=== PATIENT | male | born 1975 | race African-American/Black ===

== ENCOUNTER 2016-06-02 16:02 | Emergency (ER) | payer OTHER ==
[~2016-06-02] VITALS: Ht 175.3 cm; Wt 83.0 kg
[~2016-06-02 16:02] MED LIST: Aspirin E.C. PO; BENTYL20 MG PO; CARAFATE1 GM PO; HYDROCHLOROTH12.5 M3 PO; KEFLEX500 MG PO; MOTRIN800 MG PO; NAPROSYN500 MG PO; NAPROXEN500 MG PO; NOHOMEMEDS; PERCOCET 5/31 TABLET PO; PRILOSEC20 MG PO; PROTONIX40 MG PO; ULTRAM50 MG PO; VALIUM5 MG PO; ZOFRAN4 MG PO; [UNRECOGNIZED DRUG - OTHER] PO; [UNRECOGNIZED DRUG - REMARK] PO
[2016-06-02 16:07] VITALS: BP 133/87
== END 2016-06-02 16:40 | disposition left against medical advice (07) ==
LOC: EME 16:02
DX: M54.9 Dorsalgia, unspecified (principal); Z53.21 Procedure and treatment not carried out due to patient leaving prior to being seen by health care provider

== ENCOUNTER 2016-10-02 16:12 | Emergency (ER) | payer OTHER ==
[~2016-10-02] VITALS: Ht 175.3 cm; Wt 105.9 kg
[2016-10-02 16:28] VITALS: BP 129/84
[2016-10-02 17:20] LABS: HEMATOCRIT 43.8 % (38.0-50.0); MCH 29.1 PG (29.0-34.0); MCHC 33.6 G/DL (30.0-36.0); MCV 86.7 FL (86-99); MEAN PLAT.VOLUME 10.3 uM^3 (9.0-12.4); PLATELET COUNT 213 K/uL (156-360); RBC DIS.WIDTH-CV 12.4 % (11.8-14.6); RBC DIS.WIDTH-SD 39.4 % (39-53); RED BLOOD COUNT 5.05 M/uL (4.00-5.50); WHITE BLOOD COUNT 6.6 K/uL (4.1-10.2)
[2016-10-02 17:53] LABS: CHLORIDE 110 mEq/L (99-109); POTASSIUM 4.2 mEq/L (3.7-5.4); SODIUM 143 mEq/L (136-147)
[2016-10-02 17:55] LABS: GLUCOSE 103 mg/dL (70-99)
[2016-10-02 17:56] LABS: ANION GAP 9 MEQ/L (2-14)
[2016-10-02 17:57] LABS: TOTAL BILIRUBIN 0.3 mg/dL (0.0-1.0)
[2016-10-02 17:58] LABS: ALKALINE PHOSPHATASE 83 IU/L (3-129)
[2016-10-02 17:59] LABS: GFR ESTIMATE (CALCULATED) > 59 mL/min/
[2016-10-02 18:00] LABS: UREA NITROGEN (BUN) 10 mg/dL (9-23)
[2016-10-02 18:02] LABS: LIPASE 27 U/L (1.0-51.0)
== END 2016-10-02 18:00 | disposition left against medical advice (07) ==
LOC: EME 16:12
DX: R42 Dizziness and giddiness (principal); Z53.21 Procedure and treatment not carried out due to patient leaving prior to being seen by health care provider
CPT/HCPCS: 80053; 81003; 83690; 85027; 93005

== ENCOUNTER 2016-11-16 10:17 | Emergency (ER) | payer SELFPAY ==
[~2016-11-16] VITALS: Ht 175.3 cm; Wt 104.0 kg
[2016-11-16 11:08] LABS: HEMATOCRIT 43.6 % (38.0-50.0); MCH 28.6 PG (29.0-34.0); MCHC 33.5 G/DL (30.0-36.0); MCV 85.5 FL (86-99); MEAN PLAT.VOLUME 9.9 uM^3 (9.0-12.4); PLATELET COUNT 214 K/uL (156-360); RBC DIS.WIDTH-CV 12.3 % (11.8-14.6); RBC DIS.WIDTH-SD 38.6 % (39-53); WHITE BLOOD COUNT 5.7 K/uL (4.1-10.2)
[2016-11-16 11:29] LABS: CHLORIDE 107 mEq/L (99-109); SODIUM 138 mEq/L (136-147)
[2016-11-16 11:30] LABS: GLUCOSE 96 mg/dL (70-99)
[2016-11-16 11:32] LABS: ANION GAP 10 MEQ/L (2-14)
[2016-11-16 11:34] LABS: GFR ESTIMATE (CALCULATED) > 59 mL/min/
[2016-11-16 11:35] LABS: UREA NITROGEN (BUN) 12 mg/dL (9-23)
[2016-11-16 11:39] LABS: TROP-I INTERPRETATION NEGATIVE; TROPONIN-I < 0.01 ng/mL (0.0-0.30)
[2016-11-16 13:36] LABS: TROP-I INTERPRETATION NEGATIVE; TROPONIN-I < 0.01 ng/mL (0.0-0.30)
[2016-11-16] MEDS ORDERED: MUCINEX D ER T1 EACH PO (13:51)
[2016-11-16] MEDS ORDERED: FLONASE16 G1 BOTH NARES (13:51)
[2016-11-16] MEDS ORDERED: PREDNISONE20 MG PO (13:51)
[2016-11-16] MEDS ORDERED: ANTIVERT25 MG PO (13:51)
[2016-11-16] MEDS ORDERED: LEVAQUIN500 MG PO (13:51)
[2016-11-16 14:17] VITALS: BP 136/78
== END 2016-11-16 14:20 | disposition home or self-care (01) ==
LOC: EME 10:17
PROVIDERS: Physician Assistant
DX: J32.9 Chronic sinusitis, unspecified (principal); R53.83 Other fatigue; R53.81 Other malaise; G47.33 Obstructive sleep apnea (adult) (pediatric); S29.011A Strain of muscle and tendon of front wall of thorax, initial encounter; X58.XXXA Exposure to other specified factors, initial encounter; H65.01 Acute serous otitis media, right ear; R42 Dizziness and giddiness; R05 Cough; F17.200 Nicotine dependence, unspecified, uncomplicated
CPT/HCPCS: 71020; 80048; 84484; 85027; 93005; 99281; 99285; J7512

== ENCOUNTER 2017-04-09 14:01 | Emergency (ER) | payer SELFPAY ==
[~2017-04-09] VITALS: Ht 175.3 cm; Wt 102.0 kg
[~2017-04-09 14:01] MED LIST changes: +ANTIVERT25 MG PO; +FLONASE16 G1 BOTH NARES; +LEVAQUIN500 MG PO; +MUCINEX D ER T1 EACH PO; +PREDNISONE20 MG PO
[2017-04-09 14:45] LABS: HEMOGLOBIN 15.6 G/DL (12.5-16.6); MCH 29.7 PG (29.0-34.0); MCHC 34.7 G/DL (30.0-36.0); MCV 85.6 FL (86-99); PLATELET COUNT 234 K/uL (156-360); RBC DIS.WIDTH-CV 12.4 % (11.8-14.6); RBC DIS.WIDTH-SD 38.5 % (39-53); RED BLOOD COUNT 5.26 M/uL (4.00-5.50); WHITE BLOOD COUNT 5.7 K/uL (4.1-10.2)
[2017-04-09 14:56] LABS: CHLORIDE 111 mEq/L (99-109); POTASSIUM 4.1 mEq/L (3.7-5.4); SODIUM 139 mEq/L (136-147)
[2017-04-09 14:58] LABS: GLUCOSE 106 mg/dL (70-99)
[2017-04-09 15:02] LABS: CREATININE 1.3 mg/dL (0.6-1.3); GFR ESTIMATE (CALCULATED) > 59 mL/min/ (58.99-99999)
[2017-04-09 15:03] LABS: UREA NITROGEN (BUN) 14 mg/dL (9-23)
[2017-04-09 15:06] LABS: TROP-I INTERPRETATION NEGATIVE; TROPONIN-I < 0.01 ng/mL (0.0-0.30)
[2017-04-09 19:25] LABS: D-DIMER ELISA < 150.00 ng/mLDDU (<230)
[2017-04-09 20:10] VITALS: BP 128/96
== END 2017-04-09 20:13 | disposition home or self-care (01) ==
LOC: EME 14:01
PROVIDERS: Emergency Medicine
DX: R07.9 Chest pain, unspecified (principal); F17.200 Nicotine dependence, unspecified, uncomplicated; I10 Essential (primary) hypertension; I25.2 Old myocardial infarction; Z71.6 Tobacco abuse counseling
CPT/HCPCS: 71046; 80048; 84484; 85027; 85379; 93005; 99281; 99285

== ENCOUNTER 2017-09-10 15:15 | Emergency (ER) | payer OTHER ==
[~2017-09-10] VITALS: Ht 175.3 cm; Wt 100.3 kg
[2017-09-10 16:12] LABS: HEMATOCRIT 45.2 % (38.0-50.0); HEMOGLOBIN 15.2 G/DL (12.5-16.6); MCH 29.4 PG (29.0-34.0); MCHC 33.6 G/DL (30.0-36.0); MCV 87.4 FL (86-99); PLATELET COUNT 224 K/uL (156-360); RBC DIS.WIDTH-CV 12.8 % (11.8-14.6); RBC DIS.WIDTH-SD 41.5 % (39-53); RED BLOOD COUNT 5.17 M/uL (4.00-5.50); WHITE BLOOD COUNT 7.4 K/uL (4.1-10.2)
[2017-09-10 16:23] LABS: ALBUMIN 4.2 g/dL (3.2-4.8); CHLORIDE 106 mEq/L (99-109); POTASSIUM 4.2 mEq/L (3.7-5.4); SODIUM 141 mEq/L (136-147)
[2017-09-10 16:26] LABS: GLUCOSE 94 mg/dL (70-99); TOTAL PROTEIN 7.8 g/dL (6.4-8.3)
[2017-09-10 16:28] LABS: TOTAL BILIRUBIN 0.3 mg/dL (0.0-1.0)
[2017-09-10 16:29] LABS: ALKALINE PHOSPHATASE 87 IU/L (3-129)
[2017-09-10 16:30] LABS: CREATININE 1.1 mg/dL (0.6-1.3); GFR ESTIMATE (CALCULATED) > 59 mL/min/ (58.99-99999)
[2017-09-10 16:31] LABS: AST (GOT) 30 IU/L (2-34); UREA NITROGEN (BUN) 13 mg/dL (9-23)
[2017-09-10 16:32] LABS: ALT (GPT) 25 IU/L (3-49)
[2017-09-10 16:44] LABS: APPEARANCE CLEAR ((CLEAR)); BILIRUBIN NEGATIVE; BLOOD NEGATIVE; COLOR YELLOW ((YELLOW)); GLUCOSE (STRIP) NEGATIVE; KETONES NEGATIVE; LEUKOCYTES NEGATIVE; NITRITE NEGATIVE; PROTEIN (STRIP) 30; SPECIFIC GRAVITY 1.026 (1.000-1.030); UCUL ADDED? NO
[2017-09-10] MEDS ORDERED: FLEXERIL10 MG PO (17:38)
[2017-09-10] MEDS ORDERED: NAPROSYN500 MG PO (17:38)
[2017-09-10 17:42] VITALS: BP 133/92
== END 2017-09-10 17:46 | disposition home or self-care (01) ==
LOC: EME 15:15
DX: S39.012A Strain of muscle, fascia and tendon of lower back, initial encounter (principal); Z87.19 Personal history of other diseases of the digestive system; K62.5 Hemorrhage of anus and rectum; R10.32 Left lower quadrant pain; Z71.6 Tobacco abuse counseling; I10 Essential (primary) hypertension; I25.2 Old myocardial infarction; F17.210 Nicotine dependence, cigarettes, uncomplicated; Z98.890 Other specified postprocedural states
CPT/HCPCS: 74176; 80053; 81003; 85027; 99281; 99283; J1885